=== PATIENT | male | born 1995 | race Two or more races ===

== ENCOUNTER 2022-10-23 13:48 | Outpatient (CLI) | payer OTHER ==
--- NOTE | 2022-10-23 14:38 | SLEEP CARE CONSULTATION ---
Information from patient questionnaire entered by Nneka Wright. I have reviewed and concur with the information entered by Nneka Wright. This document represents the service I personally performed and the decisions made by me, Cris Howell ARNP. History of Present Illness Service Date and Time: 10/23/2022 1348 Reason for Visit: New patient Chief Complaint: reports: Unrefreshed sleep, Snoring, Excessive daytime sleepiness, Observed pauses in breathing, Frequent awakenings at night Date of Onset: 6YRS Usual bedtime: 12AM Time it takes to fall asleep: 1HR, varies Snores at night: Yes Observed to quit breathing while asleep: Yes Sleeps alone due to snoring: No Number of times waking at night: 2-3 Reasons for waking at night: reports: Choking, Gasping for air, Bathroom. denies: Snoring Toss, Turn, or Twitch while sleeping: Yes Recalls having dreams: Yes Usually gets out of bed at: 9-10AM, depends on work schedule Feels refreshed in the morning: No Morning headache: No Sleepy or fatigued during the day: Yes Ever fallen asleep while driving: No Takes day naps: Yes (2 times a week; 30 + minutes) Dreams during day naps: Yes Prior sleep studies: No Additional HPI information: I had the pleasure of seeing SHEIRCE MEJIA today regarding the possibility of him having a sleep disorder. His current complaints are excessive daytime sleepiness, frequent night awakenings, observed pauses in breathing, snoring and unrefreshed sleep. He states his ex-partner has told him he snores and would stop breathing at night. He was encouraged to get this checked out. He states he wakes up tired and is fatigued during the day. - Parasomnia Symptoms Ever been unable to move upon waking from sleep: No Walks in sleep: No Talks in sleep: No Ever acted out dreams in sleep: No Ever felt weak in the knees when startled or emotional: No Bothered by creepy, crawly, restless sensations in legs: No Problems with memory or concentration: No Subjective Initial [place] Sleepiness Scale score: 15 (10/23/22) Past Medical History Past Medical History: reports: Other (no significant past medical history) Social History The patient's occupation is a AM. Patient is Single and lives in . Have you smoked in the past 12 months: Yes (vapes) Cigarettes per day (20/pack): 5 Years of smokin Smoking Pack Years: 3.0 Alcohol use: Yes Alcohol amount and frequency: 3-4 DRINKS 2-3X AWEEK Caffeine use: No Family History Family history of sleep disordered breathing: Yes Family Hx Sleep Apnea: Grandparent: Sleep apnea - Treated Allergies and Home Medications Known drug allergies: No Drug allergies reviewed: Yes (NKDA) Home medication list reviewed: Yes (vitamins) Review of Systems Cardiovascular: denies: high blood pressure Respiratory: denies: shortness of breath, wheeze Gastrointestinal: denies: heartburn Neurological: denies: headaches Psychiatric: denies: anxiety, depression Ear/Nose/Throat: reports: wisdom teeth removed. denies: tonsillectomy Endocrine: denies: thyroid disease Physical Exam Vital signs obtained and entered by: NNEKA Mckinney MA Blood Pressure: 168/110 (LEFT ARM) Cuff size: regular Heart Rate: 96 O2 Saturation: 98 Height: 6 ft Weight: 275 lb 3.2 oz Body Mass Index: 37.3 BMI Classification: Obese Neck circumference: 17.75 Nostrils: patent to airflow Mouth and throat: narrow oropharynx Soft palate: normal Hard palate: normal Uvula: edematous Uvula visualization: 0% Mallampati Class IV Tongue: enlarged in size with teeth umanzor on lateral edges Tonsils: 3+/kissing Neck: normal w/o lymphadenopathy or thyromegaly Heart: regular rate and rhythm Lungs: clear bilaterally Impression and Plan 1. Suspected Obstructive Sleep Apnea-Hypopnea Syndrome, as suggested by a history of loud and irregular snoring, observed cessation of breath while asleep, gasping or choking in sleep, frequent awakening during the night, unrefreshed sleep, and excessive daytime sleepiness. Narrow oropharynx and obesity are common predisposing factors for obstructive sleep apnea-hypopnea syndrome. I recommend proceeding to polysomnography to confirm the diagnosis and to assess severity. If the patient has significant sleep disordered breathing, a manual CPAP titration study will also be performed to find the optimal treatment pressure. I informed the patient of what the sleep studies involve and after some discussion, obtained agreement to proceed. The pathophysiology of obstructive sleep apnea-hypopnea syndrome was discussed with the patient and health risks of cardiovascular and cerebrovascular disease if not treated. Risks of drowsy driving discussed in detail and patient advised to avoid long distance driving and to black puller at the first sign of drowsiness. Patient agreed to plan. * Schedule polysomnography * Avoid long distance driving or driving when feeling sleepy. * Avoid alcohol, sedative and muscle relaxant around bedtime. * Attempt to lose weight. * Review instructions provided by trained office staff on how to prepare for the sleep study. * Return for follow-up after sleep study completed. Counseling Topics: Weight loss health impact Visit Type: In Office Time Spent with Patient (minutes): 31 Provider Statement: I spent 100% of the Face to Face Visit with the patient with greater than 50% spent counseling the patient and coordination of care.
[2022-10-23 14:39] VITALS: BP 168/110
== END 2022-10-23 13:49 | disposition home or self-care (01) ==
LOC: SC 13:48
PROVIDERS: ATTEND Nurse Practitioner Family
DX: R06.83 Snoring (principal); G47.8 Other sleep disorders; R06.81 Apnea, not elsewhere classified; G47.10 Hypersomnia, unspecified; E66.9 Obesity, unspecified; Z68.37 Body mass index [BMI] 37.0-37.9, adult; F17.290 Nicotine dependence, other tobacco product, uncomplicated
CPT/HCPCS: 99203; 99212

== ENCOUNTER 2022-11-26 13:16 | Outpatient (CLI) | payer OTHER ==
[2022-11-26 13:55] VITALS: BP 140/92
--- NOTE | 2022-11-26 13:55 | SLEEP CARE CONSULTATION ---
Information from patient questionnaire entered by Lisa Wright. I have reviewed and concur with the information entered by Lisa Wright. This document represents the service I personally performed and the decisions made by me, Cris Howell ARNP. History of Present Illness Service Date and Time: 11/26/2022 1316 Initial [place] Sleepiness Scale score: 15 (10/23/22) Current [place] Sleepiness Scale score: 13 (11/26/22) Additional HPI information: SHERICE MEJIA returns for follow up and results of the recently performed home sleep study. I explained the pathophysiology behind obstructive sleep apnea. We then spent quite a bit of time discussing different treatment options. For mild obstructive sleep apnea, surgery and oral appliance are alternatives to nasal CPAP therapy but in moderate or severe cases, nasal CPAP is the most effective and reliable treatment. I reviewed the impact of weight changes on sleep apnea and strongly recommended losing weight. After some discussion, the patient opted to go with the nasal CPAP therapy. Nasal autoCPAP set at 5-20 cmH20 will be ordered with rationale explained. A manual titration study will be ordered if unable to find optimal pressure with office adjustments. I explained how CPAP machine works and what to expect when using the machine. Using CPAP every night in order to get used to it was emphasized. Patient advised to put CPAP mask on before getting into bed so as not to fall asleep without CPAP. To assist acclimation to CPAP use, it could also be used for a short time during day while reading or watching TV. The patient was instructed to call the CPAP supplier to discuss any mechanical problem that may occur. If the mask given is uncomfortable or is difficult to keep on through the night even with adjustment, contact the CPAP supplier as many will replace with another mask style if notified before 30 days. If snoring or perceives is not getting enough air or too much air from the machine, notify this office. Patient does not drink alcohol. Patient was cautioned about risks of drowsy driving until sleepiness symptoms resolve. Patient denies drowsy driving. Sleep Study - Results Type of Sleep Study: Home sleep study (COMPLETED 11/21/22) Prior sleep studies: No Polysomnography/Home Sleep Study results: Physician Impression: The quality of the study is fair due to partial loss of pulse oximetry signal. The length of the study is adequate (> 240 minutes). Please also see the tabulated and graphic data. 1. Obstructive Sleep Apnea-Hypopnea (ICD-10 G47.33), severe, with an AHI of 81.5/hr and corrie SaO2 of 79%. During the study, the patient had 541 apneas (540 obstructive, 1 central, 0 mixed) and 17 hypopneas. The longest episode lasted 56.5 seconds. The patient did not sleep supine during this study. 2. Hypoxemia (ICD-10 R09.02), moderate, with the lowest oxygen saturation of 79 % and 60.6 minutes with SaO2 under 90%. Baseline oxygen saturation was normal (Average oxygen saturation was 93%). 3. Tachycardia, with maximum recorded heart rate of 155 beats per minute. Allergies and Home Medications Drug allergies reviewed: Yes (NKDA) Home medication list reviewed: Yes (no changes) Review of Systems Review of systems same as previous: Yes (no changes) Physical Exam Vital signs obtained and entered by: LISA Mckinney MA Blood Pressure: 140/92 (left arm) Cuff size: regular Heart Rate: 103 O2 Saturation: 94 Height: 6 ft Weight: 272 lb Body Mass Index: 36.8 BMI Classification: Obese Impression and Plan 1. Obstructive Sleep Apnea-Hypopnea Syndrome, very severe, with lowest oxygen saturation of 79%. Obviously this is the cause of the patients symptoms of unrefreshed sleep, and excessive daytime sleepiness. As mentioned above, the patient will be started on nasal autoCPAP therapy with pressure set at 5-20 cmH2 O. A manual titration study will be completed if unable to find optimal treatment pressure with office adjustments. Compliance guidelines also reviewed. A copy of compliance guidelines will be given for reference at check out. 2. Hypoxemia, moderate, with the lowest oxygen saturation of 79 % and 60.6 minutes with SaO2 under 90%. His baseline oxygen saturation was normal with an average oxygen saturation of 93%. 3. Tachycardia, with maximum recorded heart rate of 155 beats per minute noted during study. This may be secondary to his sleep apnea but he was advised to follow up with his primary provider for further evaluation as needed. He voiced understanding. * Nasal auto CPAP therapy, pressure at 5-20 cm H2O. * Attempt to lose weight. * Avoid alcohol consumption near bedtime. * Avoid supine sleep until using CPAP. * The patient is again cautioned about driving until sleepiness completely resolves. * Return one month after CPAP obtained. I will assess response to therapy and compliance at that time. Counseling Topics: Weight loss health impact Visit Type: In Office Time Spent with Patient (minutes): 21 Provider Statement: I spent 100% of the Face to Face Visit with the patient with greater than 50% spent counseling the patient and coordination of care.
== END 2022-11-26 13:17 | disposition home or self-care (01) ==
LOC: SC 13:16
PROVIDERS: ATTEND Nurse Practitioner Family
DX: G47.33 Obstructive sleep apnea (adult) (pediatric) (principal); R09.02 Hypoxemia; R00.0 Tachycardia, unspecified; E66.9 Obesity, unspecified; Z68.36 Body mass index [BMI] 36.0-36.9, adult
CPT/HCPCS: 99212; 99213

== ENCOUNTER 2023-10-22 16:03 | Outpatient (CLI) | payer OTHER ==
--- NOTE | 2023-10-22 17:26 | Ultrasound Report ---
PROCEDURE: Testicle INDICATIONS: LEFT TESTICLE LESION TECHNIQUE: Real-time scanning was performed of the scrotum and testicles, with image documentation. Color and p ulse Doppler interrogation was performed of both testicles. COMPARISON: None. FINDINGS: Right: Testicle is normal in size at 4.6 x 2.4 x 2.9 cm, and homogenous in echotexture. Epididymis is normal in overall size and morphology. No hydrocele. No varicoceles. Overlying scrotal skin is n ormal in thickness. Left: Testicle is normal in size at 4.4 x 2.3 x 3.0 cm, and homogeneous in echotexture. Epididymis is normal in overall size and morphology. There is a 1.0 x 0.7 x 0.8 cm left epididymal head cyst. N o hydrocele. No varicoceles. Overlying scrotal skin is normal in thickness. Doppler: Color and pulse Doppler demonstrate normal and symmetric arterial flow in both testicles. IMPRESSION: 1. Left epididymal head cyst which likely corresponds as palpated by the patient. 2. Otherwise unremarkable testicular ultrasound. Reviewed by: Marleny Dsouza MD on 10/22/2023 5:25 PM PST Approved by: Marleny Dsouza MD on 10/22/2023 5:25 PM PST Station ID: [id number]
== END 2023-10-22 16:04 | disposition home or self-care (01) ==
LOC: DI 16:03
PROVIDERS: ATTEND Physician Assistant Medical
DX: M54.30 Sciatica, unspecified side (principal); D40.8 Neoplasm of uncertain behavior of other specified male genital organs; N50.3 Cyst of epididymis

== ENCOUNTER 2024-01-19 16:38 | Outpatient (CLI) | payer OTHER | END 2024-01-19 23:59 | disposition E | LOC: EMS 16:38 ==